=== PATIENT | female | born 1935 | race Caucasian/White ===

== ENCOUNTER 2021-11-03 22:01 | Emergency (ER) | payer MEDICARE, BC ==
[~2021-11-03] VITALS: Ht 149.9 cm; Wt 54.5 kg
[2021-11-04 00:19] LABS: BASO # 0.04 K/mm3 (0.02-0.10); EOS % 1.6 % (1.0-5.0); HEMATOCRIT 37.1 % (37.0-47.0); HEMOGLOBIN 12.7 g/dL (12.5-16.0); LYMPH# 0.97 K/mm3 (1.50-4.00); MEAN CELL VOLUME 92 fl (78-100); MEAN CORPUSCULAR HEMOGLOBIN 32 pg (27-31); MEAN CORPUSCULAR HGB CONC 34 g/dL (33-37); MEAN PLATELET VOLUME 8.9 fl (7.4-10.4); MONO # 0.63 K/mm3 (0.20-0.80); NEU # 4.63 K/mm3 (1.40-6.50); PLATELET COUNT 197 K/mm3 (130-400); RED BLOOD COUNT 4.03 M/mm3 (4.10-5.30); RED CELL DISTRIBUTION WIDTH 14.2 % (11.5-14.5); WHITE BLOOD COUNT 6.4 K/mm3 (4.8-10.8)
[2021-11-04 00:32] LABS: CALCIUM 9.4 mg/dL (8.3-10.5)
[2021-11-04 00:50] LABS: D-DIMER 0.66 mg/L FEU (0.15-0.50)
[2021-11-04 01:34] VITALS: BP 143/70
== END 2021-11-04 01:34 | disposition home or self-care (01) ==
LOC: ED 22:01
PROVIDERS: Family Medicine
DX: R60.9 Edema, unspecified (principal); E87.1 Hypo-osmolality and hyponatremia; R79.1 Abnormal coagulation profile; Z28.310 Unvaccinated for COVID-19

== ENCOUNTER → 2021-11-04 | Outpatient (CLI) | payer MEDICARE, BC | LOC: RAD 14:16 → VAS 14:16 | DX: R22.41 Localized swelling, mass and lump, right lower limb (principal) ==